=== PATIENT | male | born 1965 | race Caucasian/White ===

== ENCOUNTER 2019-06-18 22:44 | Emergency (ER) | payer OTHER ==
[~2019-06-18] VITALS: Ht 177.8 cm; Wt 132.4 kg
[~2019-06-18 22:44] MED LIST: CLARITIN-D 24 H1 TA1; HYDROCODON-ACE1 EAC7; KEFLEX500 MG PO
[2019-06-18] MEDS ORDERED: LOSARTAN POTASS50 MG PO (22:57)
[2019-06-19] MEDS ORDERED: HYDROCODON-ACE1 EAC8 PO (00:53)
[2019-06-19] MEDS ORDERED: FLEXERIL PO (00:53)
[2019-06-19 01:19] VITALS: BP 150/96
== END 2019-06-19 01:24 | disposition home or self-care (01) ==
LOC: M.ERS 22:44
DX: S76.801A Unspecified injury of other specified muscles, fascia and tendons at thigh level, right thigh, initial encounter (principal); Z85.46 Personal history of malignant neoplasm of prostate; X50.1XXA Overexertion from prolonged static or awkward postures, initial encounter; Y93.02 Activity, running; Y92.89 Other specified places as the place of occurrence of the external cause; Y99.8 Other external cause status